=== PATIENT | male | born 1980 | race Hispanic/Latino ===

== ENCOUNTER 2021-09-20 02:17 | Inpatient (IN) | payer OTHER ==
[2021-09-20 05:05] LABS: Amphetamine Not Detected (NotDetected); Barbiturates Screen Not Detected (NotDetected); Benzodiazepine Screen Not Detected (NotDetected); Bilirubin Neg (Negative); Blood, Urine Negative (Negative); Clarity Clear (Clear); Cocaine Metabolite Screen Not Detected (NotDetected); Glucose, Urine (Dipstick) Normal (Negative); Ketone, Urine Negative (Negative); Leukocyte Negative (Negative); Methadone Not Detected (NotDetected); Methamphetamine Not Detected (NotDetected); Nitrite Negative (Negative); Opiate Screen Not Detected (NotDetected); Oxycodone Screen Not Detected (NotDetected); Phencyclidine (PCP) Not Detected (NotDetected); Protein, Urine (Dipstick) Negative (Neg-Trace); Specific Gravity, Urine 1.005 (1.002-1.036); THC/Cannabinoid Screen Not Detected (NotDetected); Tricyclic Screen Not Detected (NotDetected); Urobilinogen Normal mg/dL (Less than 2)
[2021-09-20 05:48] LABS: #Basophils 0.1 10x3/uL (0.0-0.2); #Eosinphils 0.1 10x3/uL (0.0-0.5); #Monocytes 0.7 10x3/uL (0.0-1.1); #Neutrophils 2.8 10x3/uL (1.5-8.4); %Lymphocytes 28.1 % (18.0-47.0); %Monocytes 13.5 % (0.0-10.0); %Neutrophils 55.2 % (40.0-75.0); Hemoglobin 14.3 g/dL (13.5-17.5); Mean Corpuscular HGB CONC 34.5 g/dL (32.0-36.0); Mean Corpuscular Hemoglobin 30.4 pg (27.0-33.0); Mean Corpuscular Volume 88.1 fl (81.2-95.1); Mean Platelet Volume 10.2 fl (7.4-10.4); Platelet Count 181 10x3/uL (150-450); RBC Distribution Width 12.4 % (11.5-14.5); Red Blood Cell (RBC) Count 4.71 10x6/uL (4.32-5.72); White Blood Cell (WBC) Count 5.1 10x3/uL (3.5-10.5)
[2021-09-20 05:55] LABS: ALT (SGPT) 22 U/L (8-55); AST (SGOT) 26 U/L (5-34); Acetaminophen Less than 10.0 mcg/mL (10.0-30.0); Albumin 4.1 g/dL (3.5-5.0); Alcohol Less than 10 mg/dL (Less than 10); Alkaline Phosphatase 40 U/L (40-110); Anion Gap 15 mmol/L (10-20); BUN (Urea Nitrogen) 17 mg/dL (8.9-20.6); Bilirubin, Total 0.5 mg/dL (0.2-1.2); Calc. Creatinine Clearance 0 mL/min (70-130); Calcium 8.7 mg/dL (7.8-10.44); Carbon Dioxide 22 mmol/L (22-29); Chloride 107 mmol/L (98-107); Globulin 2.7 g/dL (2.4-3.5); Glucose 89 mg/dL (70-105); Protein, Total 6.8 g/dL (6.0-8.3); Salicylate Less than 8.0 mg/dL (15.0-30.0); Sodium 140 mmol/L (136-145)
[2021-09-20] MEDS ORDERED: Ondansetron PF 4 MG/2 ML Vial IVP PRN (07:09)
[2021-09-20] MEDS ORDERED: Bisacodyl 5 MG TAB PO PRN (07:09)
[2021-09-20] MEDS ORDERED: Acetaminophen 325 MG TAB PO PRN (07:09)
[2021-09-20] MEDS ORDERED: Bisacodyl 10 MG SUPP PR PRN (07:09)
[2021-09-20] MEDS ORDERED: Ondansetron ODT 4 MG TAB PO PRN (07:09)
[2021-09-20] MEDS ORDERED: Senokot S 8.6-50 MG TAB PO PRN (07:09)
[2021-09-20] MEDS ORDERED: Norepinephrine 8 MG/0.9% NS 250 ML IVPB SCH (07:15)
[2021-09-20] MEDS: Sodium Chloride 0.9% 1,000 ML IV SCH (09:00)
[2021-09-20] MEDS ORDERED: Famotidine/PF 20 mg/2ml Vial SLOW IVP PRN (09:00)
[2021-09-20 09:14] LABS: SARS-CoV-2 NAA Rapid Test Not Detected (NotDetected)
[2021-09-20] MEDS: Famotidine 20 MG TAB PO SCH (10:34)
[2021-09-20] MEDS ORDERED: Famotidine 20 MG TAB ONE (10:35)
[2021-09-20] MEDS ORDERED: Iopamidol 300 61% 100 ML VIAL FS ONE (12:57)
[2021-09-20 14:25] LABS: Hemoglobin A1c 5.6 % (4.0-6.0)
[2021-09-20] MEDS ORDERED: Atropine Sulfate 1 mg/10 ml Syringe ONE (20:44)
[2021-09-20] MEDS ORDERED: Piperacillin/Tazobactam 3.375 GM VIAL ONE (20:44)
[2021-09-20] MEDS ORDERED: Norepinephrine 8 MG/0.9% NS 250 ML ONE (21:02)
[2021-09-20 21:07] LABS: Hemoglobin 14.1 g/dL (13.5-17.5); Mean Corpuscular HGB CONC 33.8 g/dL (32.0-36.0); Mean Corpuscular Hemoglobin 30.1 pg (27.0-33.0); Mean Corpuscular Volume 89.1 fl (81.2-95.1); Mean Platelet Volume 10.3 fl (7.4-10.4); Platelet Count 168 10x3/uL (150-450); Red Blood Cell (RBC) Count 4.68 10x6/uL (4.32-5.72); White Blood Cell (WBC) Count 4.4 10x3/uL (3.5-10.5)
[2021-09-20 21:14] LABS: Magnesium 2.1 mg/dL (1.6-2.6)
[2021-09-20 21:28] LABS: MDiff Complete? YES
[2021-09-20 21:34] LABS: Band 2 % (5-11); Eosinophils 3 % (0-10); Lymphocytes 25 % (21-51); Monocytes 13 % (0-10); Neutrophil 53 % (42-75); Reactive Lymphocytes 4 % (0-10)
[2021-09-20 21:35] LABS: Platelet Morphology Comment Appears Adequate
[2021-09-20 21:36] LABS: RBC Morphology Normal
[2021-09-20] MEDS ORDERED: Midazolam HCl 2 mg/2 ml Vial ONE ×2 (21:49→22:28)
[2021-09-21] MEDS ORDERED: Dextrose 5% in Water 1,000 ML IV PRN (00:04)
[2021-09-21] MEDS ORDERED: Dextrose 50% Abboject 50 ML SYRINGE SLOW IVP PRN (00:04)
[2021-09-21] MEDS: Dextrose 5%-Lactated Ringers 1,000 ML IV SCH ×3 (00:59→19:39)
[2021-09-21] MEDS ORDERED: Famotidine/PF 20 mg/2ml Vial ONE (02:17)
[2021-09-21 06:24] LABS: #Basophils 0.1 10x3/uL (0.0-0.2); #Eosinphils 0.1 10x3/uL (0.0-0.5); #Monocytes 0.9 10x3/uL (0.0-1.1); #Neutrophils 4.7 10x3/uL (1.5-8.4); %Basophils 0.7 % (0.0-2.0); %Eosinophils 1.1 % (0.0-6.0); %Lymphocytes 17.7 % (18.0-47.0); %Monocytes 13.4 % (0.0-10.0); %Neutrophils 66.8 % (40.0-75.0); Hemoglobin 14.7 g/dL (13.5-17.5); Mean Corpuscular HGB CONC 34.8 g/dL (32.0-36.0); Mean Corpuscular Hemoglobin 30.8 pg (27.0-33.0); Mean Corpuscular Volume 88.5 fl (81.2-95.1); Mean Platelet Volume 10.2 fl (7.4-10.4); Platelet Count 177 10x3/uL (150-450); RBC Distribution Width 12.6 % (11.5-14.5); Red Blood Cell (RBC) Count 4.78 10x6/uL (4.32-5.72)
[2021-09-21 06:37] LABS: ALT (SGPT) 20 U/L (8-55); AST (SGOT) 22 U/L (5-34); Albumin 4.1 g/dL (3.5-5.0); Alkaline Phosphatase 37 U/L (40-110); Anion Gap 14 mmol/L (10-20); BUN (Urea Nitrogen) 11 mg/dL (8.9-20.6); Calc. Creatinine Clearance 0 mL/min (70-130); Carbon Dioxide 23 mmol/L (22-29); Cardiac Risk 3.3 (Less than 4.5); Chloride 107 mmol/L (98-107); Cholesterol 127 mg/dl (< 200 Desired); Estimated GFR 110; Globulin 2.7 g/dL (2.4-3.5); Glucose 115 mg/dL (70-105); HDL Cholesterol 39 mg/dL (>60 Neg Risk); LDL Cholesterol, Calculated 77 mg/dL; Magnesium 2.1 mg/dL (1.6-2.6); Protein, Total 6.8 g/dL (6.0-8.3); Sodium 140 mmol/L (136-145); Triglycerides 57 mg/dL (Less than 150)
[2021-09-21] MEDS: Senokot S 8.6-50 MG TAB PO SCH ×3 (08:47→21:28)
[2021-09-21] MEDS: Famotidine 20 MG TAB PO SCH ×3 (08:47→21:28)
[2021-09-21] MEDS: Polyethylene Glycol 3350 17 GM Packet PO SCH ×2 (08:47→08:52)
[2021-09-22 04:36] LABS: Hemoglobin 13.8 g/dL (13.5-17.5); Mean Corpuscular HGB CONC 33.6 g/dL (32.0-36.0); Mean Corpuscular Hemoglobin 30.3 pg (27.0-33.0); Mean Corpuscular Volume 90.3 fl (81.2-95.1); Mean Platelet Volume 10.6 fl (7.4-10.4); Platelet Count 181 10x3/uL (150-450); RBC Distribution Width 12.8 % (11.5-14.5); Red Blood Cell (RBC) Count 4.55 10x6/uL (4.32-5.72); White Blood Cell (WBC) Count 5.1 10x3/uL (3.5-10.5)
[2021-09-22 04:52] LABS: MDiff Complete? YES
[2021-09-22 04:57] LABS: Band 4 % (5-11); Eosinophils 1 % (0-10); Lymphocytes 25 % (21-51); Monocytes 10 % (0-10); Neutrophil 55 % (42-75); Reactive Lymphocytes 5 % (0-10)
[2021-09-22 04:58] LABS: Platelet Morphology Comment Appears Adequate; RBC Morphology Normal
[2021-09-22 05:09] LABS: ALT (SGPT) 16 U/L (8-55); AST (SGOT) 17 U/L (5-34); Albumin 3.8 g/dL (3.5-5.0); Alkaline Phosphatase 32 U/L (40-110); Anion Gap 14 mmol/L (10-20); BUN (Urea Nitrogen) 10 mg/dL (8.9-20.6); Bilirubin, Total 0.5 mg/dL (0.2-1.2); Calc. Creatinine Clearance 160 mL/min (70-130); Calcium 8.9 mg/dL (7.8-10.44); Carbon Dioxide 25 mmol/L (22-29); Chloride 107 mmol/L (98-107); Estimated GFR 109; Globulin 2.6 g/dL (2.4-3.5); Glucose 109 mg/dL (70-105); Magnesium 2.1 mg/dL (1.6-2.6); Potassium 4.2 mmol/L (3.5-5.1); Protein, Total 6.4 g/dL (6.0-8.3); Sodium 142 mmol/L (136-145)
[2021-09-22] MEDS: Dextrose 5%-Lactated Ringers 1,000 ML IV SCH ×3 (06:00→20:16)
[2021-09-22] MEDS: Famotidine 20 MG TAB PO SCH ×2 (08:51→20:16)
[2021-09-22] MEDS: Polyethylene Glycol 3350 17 GM Packet PO SCH (08:52)
[2021-09-22] MEDS: Senokot S 8.6-50 MG TAB PO SCH ×2 (08:52→20:16)
[2021-09-22] MEDS: Sodium Chloride 0.9% 1,000 ML IV SCH (19:42)
[2021-09-23 04:45] LABS: #Eosinphils 0.1 10x3/uL (0.0-0.5); #Monocytes 0.7 10x3/uL (0.0-1.1); %Basophils 0.7 % (0.0-2.0); %Eosinophils 2.2 % (0.0-6.0); %Lymphocytes 27.9 % (18.0-47.0); %Monocytes 13.1 % (0.0-10.0); %Neutrophils 55.7 % (40.0-75.0); Hemoglobin 14.5 g/dL (13.5-17.5); Mean Corpuscular HGB CONC 33.3 g/dL (32.0-36.0); Mean Corpuscular Hemoglobin 30.4 pg (27.0-33.0); Mean Corpuscular Volume 91.4 fl (81.2-95.1); Mean Platelet Volume 10.7 fl (7.4-10.4); Platelet Count 181 10x3/uL (150-450); RBC Distribution Width 12.7 % (11.5-14.5); Red Blood Cell (RBC) Count 4.77 10x6/uL (4.32-5.72); White Blood Cell (WBC) Count 5.4 10x3/uL (3.5-10.5)
[2021-09-23 04:52] LABS: ALT (SGPT) 22 U/L (8-55); AST (SGOT) 25 U/L (5-34); Albumin 4.2 g/dL (3.5-5.0); Alkaline Phosphatase 41 U/L (40-110); Anion Gap 14 mmol/L (10-20); BUN (Urea Nitrogen) 11 mg/dL (8.9-20.6); Bilirubin, Total 0.4 mg/dL (0.2-1.2); Calc. Creatinine Clearance 152 mL/min (70-130); Calcium 9.7 mg/dL (7.8-10.44); Carbon Dioxide 25 mmol/L (22-29); Chloride 106 mmol/L (98-107); Estimated GFR 102; Glucose 85 mg/dL (70-105); Magnesium 1.9 mg/dL (1.6-2.6); Potassium 4.1 mmol/L (3.5-5.1); Protein, Total 7.2 g/dL (6.0-8.3); Sodium 141 mmol/L (136-145)
[2021-09-23 05:17] VITALS: BMI 35.6
[2021-09-23] MEDS: Famotidine 20 MG TAB PO SCH ×2 (08:14→20:01)
[2021-09-23] MEDS ORDERED: Midodrine HCl 5 MG TAB PO SCH (08:30)
[2021-09-23] MEDS: Midodrine HCl 2.5 MG TAB PO SCH ×2 (09:00→16:03)
[2021-09-23] MEDS: Polyethylene Glycol 3350 17 GM Packet PO SCH (09:02)
[2021-09-23] MEDS: Senokot S 8.6-50 MG TAB PO SCH ×2 (10:38→20:01)
[2021-09-24] MEDS: Midodrine HCl 2.5 MG TAB PO SCH ×2 (00:06→09:29)
[2021-09-24 05:27] LABS: #Basophils 0.1 10x3/uL (0.0-0.2); #Eosinphils 0.1 10x3/uL (0.0-0.5); #Monocytes 0.7 10x3/uL (0.0-1.1); #Neutrophils 3.1 10x3/uL (1.5-8.4); %Basophils 0.9 % (0.0-2.0); %Eosinophils 2.3 % (0.0-6.0); %Lymphocytes 25.9 % (18.0-47.0); %Monocytes 12.9 % (0.0-10.0); %Neutrophils 57.8 % (40.0-75.0); Hemoglobin 14.7 g/dL (13.5-17.5); Mean Corpuscular HGB CONC 33.9 g/dL (32.0-36.0); Mean Corpuscular Hemoglobin 30.6 pg (27.0-33.0); Mean Corpuscular Volume 90.4 fl (81.2-95.1); Mean Platelet Volume 11.1 fl (7.4-10.4); Platelet Count 187 10x3/uL (150-450); RBC Distribution Width 12.6 % (11.5-14.5); White Blood Cell (WBC) Count 5.3 10x3/uL (3.5-10.5)
[2021-09-24 05:57] LABS: ALT (SGPT) 25 U/L (8-55); AST (SGOT) 27 U/L (5-34); Albumin 4.3 g/dL (3.5-5.0); Alkaline Phosphatase 38 U/L (40-110); Anion Gap 14 mmol/L (10-20); BUN (Urea Nitrogen) 13 mg/dL (8.9-20.6); Bilirubin, Total 0.4 mg/dL (0.2-1.2); Calc. Creatinine Clearance 159 mL/min (70-130); Calcium 9.6 mg/dL (7.8-10.44); Carbon Dioxide 26 mmol/L (22-29); Chloride 103 mmol/L (98-107); Estimated GFR 108; Globulin 3.1 g/dL (2.4-3.5); Glucose 75 mg/dL (70-105); Magnesium 1.9 mg/dL (1.6-2.6); Potassium 3.9 mmol/L (3.5-5.1); Protein, Total 7.4 g/dL (6.0-8.3); Sodium 139 mmol/L (136-145)
[2021-09-24] MEDS: Senokot S 8.6-50 MG TAB PO SCH (09:28)
[2021-09-24] MEDS: Famotidine 20 MG TAB PO SCH (09:29)
[2021-09-24] MEDS: Polyethylene Glycol 3350 17 GM Packet PO SCH (09:30)
[2021-09-24 12:58] VITALS: BP 111/67; TEMP 97.6
== END 2021-09-24 16:15 | DRG 917 ==
LOC: CSHERS 02:17 → EEVIPCON 02:17 → SUATTDRO 02:17 → CSHERHOLD 08:38 → CSHICU 08:38 → CSHTELE 09-23 21:51
PROVIDERS: ADMIT Family Medicine; ATTEND Family Medicine
PROC: 02HV33Z Insertion of Infusion Device into Superior Vena Cava, Percutaneous Approach (ICD-10-PCS; principal; 2021-09-20)
PROC: 3E033XZ Introduction of Vasopressor into Peripheral Vein, Percutaneous Approach (ICD-10-PCS; 2021-09-20)
DX: T46.4X2A Poisoning by angiotensin-converting-enzyme inhibitors, intentional self-harm, initial encounter (principal); R57.0 Cardiogenic shock; R45.851 Suicidal ideations; I10 Essential (primary) hypertension; F31.9 Bipolar disorder, unspecified; Z20.822 Contact with and (suspected) exposure to COVID-19; K59.00 Constipation, unspecified; T18.8XXA Foreign body in other parts of alimentary tract, initial encounter; Y92.89 Other specified places as the place of occurrence of the external cause
CPT/HCPCS: 36415; 36416; 71045; 74018; 74177; 80053; 80061; 80164; 80306; 80307; 81003; 83036; 83605; 83735; 83880; 84443; 84484; 85025; 86850; 86900; 86901; 87040; 93005; 93010; 93306; J0461; J2250; J2543; J7050; Q9967; S0028; U0002

== ENCOUNTER 2022-04-19 20:18 | Emergency (ER) | payer OTHER ==
[2022-04-19] MEDS ORDERED: Propranolol HCl 20 MG TAB PO SCH (21:15)
[2022-04-19 21:24] LABS: #Basophils 0.1 10x3/uL (0.0-0.2); #Eosinphils 0.1 10x3/uL (0.0-0.5); #Monocytes 1.2 10x3/uL (0.0-1.1); #Neutrophils 8.9 10x3/uL (1.5-8.4); %Basophils 0.4 % (0.0-2.0); %Eosinophils 0.6 % (0.0-6.0); %Lymphocytes 9.7 % (18.0-47.0); %Monocytes 10.3 % (0.0-10.0); %Neutrophils 78.6 % (40.0-75.0); Hemoglobin 14.7 g/dL (13.5-17.5); Mean Corpuscular HGB CONC 34.9 g/dL (32.0-36.0); Mean Corpuscular Hemoglobin 30.2 pg (27.0-33.0); Mean Corpuscular Volume 86.6 fl (81.2-95.1); Mean Platelet Volume 10.1 fl (7.4-10.4); Platelet Count 183 10x3/uL (150-450); RBC Distribution Width 12.5 % (11.5-14.5); Red Blood Cell (RBC) Count 4.86 10x6/uL (4.32-5.72); White Blood Cell (WBC) Count 11.3 10x3/uL (3.5-10.5)
[2022-04-19 21:42] LABS: ALT (SGPT) 15 U/L (8-55); AST (SGOT) 22 U/L (5-34); Albumin 4.8 g/dL (3.5-5.0); Alkaline Phosphatase 41 U/L (40-110); Anion Gap 16 mmol/L (10-20); BUN (Urea Nitrogen) 15 mg/dL (8.9-20.6); Bilirubin, Total 0.4 mg/dL (0.2-1.2); Calc. Creatinine Clearance 0 mL/min (70-130); Calcium 10.1 mg/dL (7.8-10.44); Carbon Dioxide 26 mmol/L (22-29); Chloride 102 mmol/L (98-107); Estimated GFR 84; Globulin 3.6 g/dL (2.4-3.5); Glucose 95 mg/dL (70-105); Potassium 3.8 mmol/L (3.5-5.1); Protein, Total 8.4 g/dL (6.0-8.3); Sodium 140 mmol/L (136-145)
[2022-04-19 21:45] LABS: SARS-CoV-2 NAA Rapid Test Not Detected (NotDetected)
[2022-04-19 23:51] LABS: Troponin I Less than 0.010 ng/mL (< 0.028)
[2022-04-19] MEDS ORDERED: Ketorolac Tromethamine 30 MG/ML VIAL ONE (23:54)
== END 2022-04-20 00:15 ==
LOC: CSHERS 20:18
DX: R07.9 Chest pain, unspecified (principal); R51.9 Headache, unspecified; Z20.822 Contact with and (suspected) exposure to COVID-19; E66.9 Obesity, unspecified; I10 Essential (primary) hypertension; Z79.899 Other long term (current) drug therapy
CPT/HCPCS: 36415; 71045; 80053; 83880; 84443; 84484; 85025; 93005; 96374; J1885; U0002